=== PATIENT | female | born 1945 | race African-American/Black ===

== ENCOUNTER → 2016-03-05 | Outpatient (CLI) | payer MEDICARE, OTHER ==
[~2016-03-05] MED LIST: ALPR0.25 PO; ATEN50TA PO; CLON0.2T12 PO; HYDR-2652 PO; IOHEXOL 350 MG/ML 100ML IJ ONE; ISOS30TA4 PO; NITR0.4D10 TD; Norvasc PO; OMEP20CA5 PO; POT20T PO; READI-CAT 2 (BARIUM SULF)(VANILLA SMOOTHIE) 450ML ONE; SERT-135 PO; TRIA75TA66 PO; TRIH5TAB2 PO; VALS160T51 PO
[2016-03-05 10:20] VITALS: BP 133/88
[2016-03-05 11:05] VITALS: BP 147/84
[2016-03-05 13:33] LABS: BUN/Creatinine Ratio 18.5; Calcium 8.8 mg/dL (8.5-10.1)
== END | disposition home or self-care (01) ==
LOC: Rad HDHVI 10:02
PROVIDERS: ATTEND Internal Medicine Cardiovascular Disease
DX: I10 Essential (primary) hypertension (principal); I50.9 Heart failure, unspecified; E83.40 Disorders of magnesium metabolism, unspecified; D64.9 Anemia, unspecified
CPT/HCPCS: 36415; 71260; 74177; 80048; G0463

== ENCOUNTER → 2016-04-09 | Outpatient (CLI) | payer MEDICARE, OTHER ==
[2016-04-09 11:00] VITALS: BP 106/68
[2016-04-09 12:00] VITALS: BP 111/71
== END | disposition home or self-care (01) ==
LOC: Rad HDHVI 10:36
PROVIDERS: ATTEND Internal Medicine Cardiovascular Disease
DX: R63.4 Abnormal weight loss (principal); I10 Essential (primary) hypertension; E78.00 Pure hypercholesterolemia, unspecified; R10.9 Unspecified abdominal pain; R07.9 Chest pain, unspecified; R06.02 Shortness of breath
CPT/HCPCS: 71260; 74177; 96374; G0463; Q9967